=== PATIENT | male | born 1960 | race Caucasian/White ===

== ENCOUNTER 2024-06-28 23:54 | Emergency (ER) | payer MEDICAID ==
[~2024-06-28] VITALS: Ht 165.1 cm; Wt 90.9 kg
[~2024-06-28 23:54] MED LIST: CYCL-1 PO
[2024-06-29 02:38] VITALS: BP 132/107; PULSE 76; RESP 18; TEMP 98.6; O2SAT 96
== END 2024-06-29 02:40 | disposition home or self-care (01) ==
LOC: ER 23:55
DX: F10.129 Alcohol abuse with intoxication, unspecified (principal); E78.00 Pure hypercholesterolemia, unspecified; I10 Essential (primary) hypertension; F15.90 Other stimulant use, unspecified, uncomplicated; Z79.899 Other long term (current) drug therapy; Y90.9 Presence of alcohol in blood, level not specified
CPT/HCPCS: 99283